=== PATIENT | male | born 1960 | race Caucasian/White ===

== ENCOUNTER → 2021-09-05 12:59 | Outpatient (CLI) | payer OTHER, SELFPAY | PROVIDERS: PCP Nurse Practitioner Family; Visit Provider Nurse Practitioner Family | DX: Z20.822 Contact with and (suspected) exposure to COVID-19 (principal) | CPT/HCPCS: C9803; U0003; U0005 ==

== ENCOUNTER 2025-10-11 10:52 | Outpatient (CLI) | payer SELFPAY ==
--- OUTSIDE RECORDS SUMMARY | 2025-08-21 12:40 | XMS_ITS | Encounter Summary ---
Author Organization [facility] Address [address] [place] [address] Care Team Providers Care Coal Picker Name Role Phone Refugio Greer MD Primary Care Provider Tran vailable Reason for Visit * Reason Comments Med Refill Encounter Details Date Type Department Care Team (Late st Contact Info) Description 08/21/2025 1:40 PM EDT Office Visit [facility] Interventional Pain Medicine [address] [facility] [place] [address] Tony Bautista MD [address] [facility] [address] [place] [address] Sacroiliac joint pain (Primary Dx); half-way prescription opiate use Social History Tobacco Use Types Packs/Day Years Used Date Smoking Tobacco: Every Day Cigarettes Smokeless Tobacco: Never Tobacco Cessation:Ready to Q uit: No; Counseling Given: Yes Comments:1/2 ppd Alcohol Use Standard Drinks/Week Comments Not Currently 0 (1 standard drink = 0.6 oz pur e alcohol) PHQ-2 Answer Date Recorded Patient Health Questionnaire-2 Score 0 04/18/2025 Sex and Gender Information Value Date Recorded Sex Assigned at Not on file Legal Sex Male 7:41 PM EDT Gender Identity Not on file Sexual Orientation Not on file documented as of this encounter Last Filed Vital Signs Vital Sign Reading Time Taken Comments Blood Pressure 135/81 08/21/2025 1:35 PM EDT Pulse 69 08/21/2025 1:35 PM EDT Temperature 36.6 C (97.9 F) 08/21/2025 1:35 PM EDT Respiratory Rate 18 08/21/2025 1:35 PM EDT Oxygen Saturation 97% 08/21/2025 1:35 PM EDT Inhaled Oxygen Concentration - - Weight 103 kg (227 lb) 08/21/2025 1:35 PM EDT Height 182.9 cm (6') 08/21/2025 1:35 PM EDT Body Mass Index 30.79 08/21/2025 1:35 PM EDT documented in this encounter Miscellaneous Notes * Progress Notes - Althea Mendoza APRN - 08/21/2025 1:40 PM EDT Images from the original note were not included. Interventional Pain Medicine Follow Up Note Subjective: Interval History: 08/21/25 Celestino presents today for routine medication follow up refill for chronic SI joint pain. Endorsing left and low back pain which is 6/10. Pain is described as dull and sharp. Exacerbated with prolonged standing, walking. Reduced with pacing activity, rest, HEP, medication. Patient denies any LE paresthesias, saddle anesthesia, bowel or bladder dysfunction, LE weakness Patient is currently requiring to take methadone 10mg QID. Patient is stable on current methadone use and has been stable on this dose for years. Patient reports pain relief and functional drive fromcurrent methadone use. Patient is able ADLS and chores from utilization of methadone. Denies untoward effects including sedation or constipation from medication and keeps in a secure location. Current GPS: 18.5 Past GPS: 13 History of Present Illness: Mr. Braajas is a 64 year-old with chronic SIJ pain and has been established in our clinic for years Onset: years Location: left low back/hip Severity: 3-7/10 Descriptors: aching Aggravating Factors: prolonged sitting and standing Relieving Factors: Methadone, repositioning Associated Symptoms: none STOP BANG: risk factors for sleep apnea including snoring, male, age, and treated for HTN Past Medications NSAIDs, neuropathic agents, other opioids, muscle relaxers Non-interventional Tx: Physical therapy Interventional Tx: Injection therapy- failed Review of Systems: CONSTITUTIONAL: denies fevers, chills HEENT: denies swallowing difficulties, sore throat CARDIOVASCULAR: denies chest pain, palpitations, syncope RESPIRATORY: denies shortness of breath, cough, wheezing GI: no bowel dysfunction : no urinary dysfunction SKIN: denies rash, skin changes MSK: Per HPI NEURO: no numbness or tingling PSYCH: no depression or anxiety General Physical Exam: Constitutional NAD; well nourished; conversant Head Normocephalic and atraumatic. Neck Neck supple Cardiovascular Well perfused Pulmonary/Chest Effort normal, no shortness of breath noted Neurological Alert and oriented to person, place, and time Skin Skin is warm and dry Psychiatric Mood/affect congruent with situation; denies suicidal ideation; no signs of impairment Neurologic & Musculoskeletal Exam Lumbar Region Exam Right (+/-) Left (+/-) Lumbar Musculature Tender w/ palpation - - Lumbar Facet Pain w/ extension - + Motor Strength Right Left L2: 5/5 5/5 L3: 5/5 5/5 L4: 5/5 5/5 L5: 5/5 5/5 S1: 5/5 5/5 Sacroiliac Joint Exam Right Left Jaren's Finger (PSIS) - + Guarded with external rotation of left hip No pain with internal rotation of right hip Imaging: Assessment & Plan: Celestino Barajas is a 65 y.o. male with persistent low back pain. We will continue a multimodal treatment approach and involve interventional therapy where indicated. Patient otherwise stable on current maintenance regimen. Anticoagulation: none #intractable sacroiliac joint pain, LEFT Chronic worsening requiring opioid medication - failed medication holiday - consider percutaneous SIJ fusion; patient is not interested in pursuing interventions - patient is currently managing pain with Methadone 10 mg QID for pain #lumbar spondylosis chronic worsening -facetogenic pain on exam -consider left lumbar MBB; patient is not interested #Tobacco Use -Recommend Cessation and counseled on today. -Tobacco use is a risk factor for increased infections if any implantable devices are considered #Chronic prescription opioid use High Risk medication needing intensive monitoring -currently compliant Refilled: -Methadone 10 mg four times daily #120, (2) 30 day prescriptions x 2 -will need updated EKG; following up PCP -; QTC 447 on 09/24/24 A. Opioid agreement: signed 06/14/2025 B. Last LCMS that was done 12/21/2024: appropriate; UDS appropriated today and sent for confirmation C. PDMP/KATHARINA reviewed and appropriate: D. As documented in the signed opioid agreement, the patient is aware of the risks associated with the administration of chronic opioids, including the risk of overdose and , the risk of developing misuse, abuse, and addiction to the prescribed medications, as well as the other risks associated with chronic opioid administration. Routine assessment for mental health conditions have been assessed during this visit, and the patient has been properly screened for substance use disorders (riskof developing and presence of these conditions). Patient reports that opioid pain medicine use increases their functional ability on a daily basis. In addition they are stored in a safe place. E. Has Narcan for emergency use F/u in 2 months for medication follow up and reevaluation Cosigned by Tony Bautista MD at 09/13/2025 6:48 AM EST Associated attestation - Tony Bautista MD - 09/13/2025 6:48 AM EST I attest to being involved in providing substantive part of the medical decision making in patient care. Results of history and physical exam findings discussed with GILMA, I directed the plan of care. Refilled meds, things are stable * Progress Notes - Ceci Calvo CNA - 08/21/2025 1:40 PM EDT Methadone 08/21/25 11:15am documented in this encounter Plan of Treatment Upcoming Encounters Date Type Department Care Team (Late st Contact Info) Description 10/18/2025 3:10 PM EST Office Visit [facility] Interventional Pain Medicine [address] [place] [id number] Tony Bautista MD [address] [facility] [address] [place] [phone] documented as of this encounter Procedures Procedure Name Priority Date/Time Associated Diagnosis Comments PAIN MANAGEMENT, QUANTITATIVE URINE DRUG TESTING Routine 08/21/2025 2:01 PM EDT 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 PAIN MANAGEMENT, QUANTITATIVE URINE DRUG TESTING Routine 08/21/2025 2:01 PM EDT 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 documented in this encounter Results * (ABNORMAL) Pain Management, Quantitative Urine Drug Testing (08/21/2025 2:01 PM EDT) [facility] [place] Alprazolam <20 <20 ng/mL 08/25 3:10 PM EDT [facility] [place] Midazolam <20 <20 ng/mL 2024 3:10 PM EDT [facility] [place] Triazolam <20 <20 ng/mL 2024 3:10 PM EDT [facility] Alprazolam <10 <10 ng/mL 08/25/2025 3:10 PM EDT [facility] Aminoclonazepam <20 <20 ng/mL 3:10 PM EDT [facility] Amphetamine <50 <50 ng/mL 08/25/2025 3:10 PM EDT [facility] Benzoylecgonine <50 <50 ng/mL 3:10 PM EDT [facility] Buprenorphine <10 <10 ng/mL 08/25/2025 3:10 PM EDT [facility] Buprenorphine Glucuronide <50 <50 ng/mL 08/25/2025 3:10 PM EDT [facility] Butalbital <50 <50 ng/mL 08/25/2025 3:10 PM EDT [facility] 9 Carboxy THC <10 <10 ng/mL 08/25/2025 3:10 PM EDT [facility] 9 Carboxy THC Glucuronide <25 <25 ng/mL 08/25/2025 3:10 PM EDT [facility] Clonazepam <10 <10 ng/mL 08/25/2025 3:10 PM EDT [facility] Codeine <50 <50 ng/mL 08/25/2025 3:10 PM EDT [facility] Codeine Glucuronide <50 <50 ng/mL 08/25 3:10 PM EDT [facility] Cyclobenzaprine <50 <50 ng/mL 3:10 PM EDT [facility] Desmethyl Tramadol <50 <50 ng/mL 2024 3:10 PM EDT [facility] Diazepam <10 <10 ng/mL 08/25/2025 3:10 PM EDT [facility] EDDP - Methadone Metabolite >1,000(H) <50 ng/mL 08/25/2025 3:10 PM EDT [facility] Fentanyl <1 <1 ng/mL 08/25/2025 3:10 PM EDT [facility] Hydrocodone <50 <50 ng/mL 08/25/2025 3:10 PM EDT [facility] Hydromorphone <50 <50 ng/mL 08/25/2025 3:10 PM EDT [facility] Hydromorphone Glucuronide <50 <50 ng/mL 08/25/2025 3:10 PM EDT [facility] Lorazepam <20 <20 ng/mL 08/25/2025 3:10 PM EDT [facility] Lorazepam Glucuronide <50 <50 ng/mL 08/25/2025 3:10 PM EDT [facility] MDA <50 <50 ng/mL 08/25/2025 3:10 PM EDT [facility] MDMA <50 <50 ng/mL 08/25/2025 3:10 PM EDT [facility] Meperidine <50 <50 ng/mL 08/25/2025 3:10 PM EDT [facility] Methadone 528(H) <50 ng/mL 08/25/2025 3:10 PM EDT [facility] Methamphetamine <50 <50 ng/mL 3:10 PM EDT [facility] Methylphenidate <50 <50 ng/mL 3:10 PM EDT [facility] 6 Monoacetyl morphine <10 <10 ng/mL 08/25/2025 3:10 PM EDT [facility] Morphine <50 <50 ng/mL 08/25/2025 3:10 PM EDT [facility] Morphine Glucuronide <50 <50 ng/mL 08/07 3:10 PM EDT [facility] Naloxone <50 <50 ng/mL 08/25/2025 3:10 PM EDT [facility] Naloxone Glucuronide <50 <50 ng/mL 08/07 3:10 PM EDT [facility] Norbuprenorphine <10 <10 ng/mL 08/25/20 3:10 PM EDT [facility] Norbuprenorphine Glucuronide <50 <50 ng/mL 08/25/2025 3:10 PM EDT [facility] Nordiazepam <20 <20 ng/mL 08/25/2025 3:10 PM EDT [facility] Norfentanyl <2 <2 ng/mL 08/25/2025 3:10 PM EDT [facility] Normeperidine <50 <50 ng/mL 08/25/2025 3:10 PM EDT [facility] PCP Quant, Ur <50 <50 ng/mL 08/25/2025 3:10 PM EDT [facility] Phenobarbital <50 <50 ng/mL 08/25/2025 3:10 PM EDT [facility] Oxazepam <20 <20 ng/mL 08/25/2025 3:10 PM EDT [facility] Oxazepam Glucuronide <50 <50 ng/mL 08/07 3:10 PM EDT [facility] Oxycodone <50 <50 ng/mL 08/25/2025 3:10 PM EDT [facility] Oxymorphone <50 <50 ng/mL 08/25/2025 3:10 PM EDT [facility] Oxymorphone Glucuronide <50 <50 ng/mL 08/25/2025 3:10 PM EDT [facility] Secobarbital <50 <50 ng/mL 08/25/2025 3:10 PM EDT [facility] Tramadol <50 <50 ng/mL 08/25/2025 3:10 PM EDT [facility] Temazepam <20 <20 ng/mL 08/25/2025 3:10 PM EDT [facility] Temazepam Glucuronide <50 <50 ng/mL 08/25/2025 3:10 PM EDT [facility] Urine Urine specimen obtained by clean catch procedure / Unknown Non-blood Collection / Unknown 08/21/2025 2:01 PM EDT 08/21/2025 6:24 PM EDT Narrative [facility] - 08/25/2025 3:10 PM EDT This report is intended for use in clinical monitoring or management of patients. It is NOT intended for use in employment-related drug testing. For pain management, the absence of expected drug(s) and/or drug metabolite(s) may indicate non-compliance, inappropriate timing of specimen collection relative to drug administration, poor drug absorption, or limitations of testing. Interpretive questions should be directed to the laboratory. Test performed by LC-MS/MS at the [facility]. This test was developed and its performance characteristics determined by [facility]. It has not been cleared or approved by the FDA. The laboratory is regulated under CLIA as qualified to perform high-complexity testing. This test is used for clinical purposes. 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
--- OUTSIDE RECORDS SUMMARY | 2025-10-11 10:55 | XMS_ITS | Encounter Summary ---
Author Organization [facility] Address [address] [place] [address] Care Team Providers Care Fagot Heater Helper Name Role Phone Garcia, Pauline Kathleen WRIGHT Primary Care Provider Refugio Greer MD Primary Care Provider Tran vailable Reason for Visit * Reason Onset Date Comments Med Refill Med Refill 06/18/2021 Encounter Details Date Type Department Care Team (Late st Contact Info) Description 06/16/2021 Refill [facility] Interventional Pain Medicine [address] [place] [address] Maykel Vivas MD [address] [facility] [address] [place] [address] Social History Tobacco Use Types Packs/Day Years Used Date Smoking Tobacco: Every Day Cigarettes Smokeless Tobacco: Never Sex and Gender Information Value Date Recorded Sex Assigned at Not on file Legal Sex Male 7:41 PM EDT Gender Identity Not on file Sexual Orientation Not on file documented as of this encounter Miscellaneous Notes * Telephone Encounter - Heaven Chavis - 06/18/2021 10:28 AM EDT Patient Phone Message Reason for Call: Pharm is calling to discuss denial of methadone script Best contact number and optimal time of day to reach caller: [phone] Note: Please do not reply to this message. Follow-up communication and further actions as a result of this message need to be communicated with the patient directly, if the patient is not active onMyChart. If the patient is active on MyChart, they will receive notification of the communication/outcome via [employer]. documented in this encounter Plan of Treatment Upcoming Encounters Date Type Department Care Team (Late st Contact Info) Description 10/18/2025 3:10 PM EST Office Visit [facility] Interventional Pain Medicine [address] [place] [address] Tony Bautista MD [address] [facility] [address] [place] [address] documented as of this encounter Visit Diagnoses Not on filedocumented in this encounter Additional Health Concerns Assessment Noted Time A fall risk assessment has been complete d for the patient 05/13/2021 3:27 PM EDT documented as of this encounter Care Teams Fagot Heater Helper Relationship Specialty Start Date End Date Pauline Garcia APRN [address] [place] [address] PCP - General 11/10/21 12/07/24 Refugio Greer MD [address] [place] [address] PCP - General Family Medicine 12/08/24 documented as of this encounter
--- OUTSIDE RECORDS SUMMARY | 2025-10-11 10:55 | XMS_ITS | Encounter Summary ---
Author Organization [facility] Address [address] [place] [address] Care Team Providers Care Mining Consultant Name Role Phone Refugio Greer MD Primary Care Provider Tran vailable Encounter Details Date Type Department Care Team (Latest Contact Info) Description 08/21/2025 Travel Social History Tobacco Use Types Packs/Day Years Used Date Smoking Tobacco: Every Day Cigarettes Smokeless Tobacco: Never Comments:1/2 ppd Alcohol Use Standard Drinks/Week Comments Not Currently 0 (1 standard drink = 0.6 oz pur e alcohol) PHQ-2 Answer Date Recorded Patient Health Questionnaire-2 Score 0 04/18/2025 Sex and Gender Information Value Date Recorded Sex Assigned at Not on file Legal Sex Male 7:41 PM EDT Gender Identity Not on file Sexual Orientation Not on file documented as of this encounter Plan of Treatment Upcoming Encounters Date Type Department Care Team (Late st Contact Info) Description 10/18/2025 3:10 PM EST Office Visit [facility] Interventional Pain Medicine [address] [place] [address] Tony Bautista MD [address] [facility] [address] [place] [address] documented as of this encounter Visit Diagnoses Not on filedocumented in this encounter Additional Health Concerns Assessment Noted Time A fall risk assessment has been complete d for the patient 08/21/2025 1:34 PM EDT A Body Mass Index follow-up plan has been documented for the patient 08/22/2025 10:41 AM EDT documented as of this encounter Care Teams Mining Consultant Relationship Specialty Start Date End Date Refugio Greer MD PCP - General Family Medicine 12/08/24 documented as of this encounter
--- OUTSIDE RECORDS SUMMARY | 2025-10-11 10:55 | XMS_ITS | Encounter Summary ---
Author Organization [facility] Address [address] [place] [address] Care Team Providers Care Inside Sales Director Name Role Phone Refugio Greer MD Primary Care Provider Tran vailable Encounter Details Date Type Department Care Team (Late st Contact Info) Description 10/02/2025 Orders Only [facility] Interventional Pain Medicine [address] [place] [address] Guzman Olmstead, DO [address] [id number] Encounter for long-term methadone use (Primary Dx) Social History Tobacco Use Types Packs/Day Years [...] Description 10/18/2025 3:10 PM EST Office Visit [facility] Interventional Pain Medicine [address] [place] [address] Tony Bautista MD [address] [facility] [address] [place] [address] Scheduled Orders Name Type Priority Associated Diagnoses Orde r Schedule ECG Adult (Performed in the Heart Station) ECG Routine Encounter for long-term methadone use Expected: 10/02/2025 (Approximate), Expires: 04/05/2027 documented as of this encounter Visit Diagnoses Diagnosis Encounter for long-term methadone use- Primary Encounter for long-term (current) use of other medications documented in this encounter Additional Health Concerns Assessment Noted Time A fall risk assessment has been complete d for the patient 08/21/2025 1:34 PM EDT A Body Mass Index follow-up plan has been documented for the patient 08/22/2025 10:41 AM EDT documented as of this encounter Care Teams Inside Sales Director Relationship Specialty Start Date End Date Refugio Greer MD PCP - General Family Medicine 12/08/24 documented as of this encounter
--- OUTSIDE RECORDS SUMMARY | 2025-10-11 10:55 | XMS_ITS | Encounter Summary ---
Author Organization [facility] Address [address] [place] [address] Care Team Providers Care Spun Paste Machine Operator Name Role Phone Refugio Greer MD Primary Care Provider Tran vailable Reason for Visit * Reason Onset Date Comments HCN Clinical Concern/Question 10/01/2025 Encounter Details Date Type Department Care Team (Late st Contact Info) Description 10/01/2025 Telephone [facility] Interventional Pain Medicine [address] [facility] [place] [address] Tony Bautista MD [address] [facility] [address] [place] [address] HCN Clinical Concern/Question Social History Tobacco Use Types Packs/Day Years [...] encounter Miscellaneous Notes * Telephone Encounter - Светлана Arias - 10/02/2025 2:52 PM EST done * Telephone Encounter - Montserrat Cardenas - 10/01/2025 1:04 PM EST Clinical Concern/Question Reason for Call: Dr Bautista/Patient called stating that he is needing an order to have an EKG. He stated that at last appointment they were going to give him one but he thought he would not need one however he does. Please send to his email [email or web address]. Thanks Best contact number: [phone] (home) Optimal time of day to reach caller: ANYTIME Additional comments/information from caller: None Note: Please do not reply to this message. Follow-up communication and further actions as a result of this message need to be communicated with the patient directly, if the patient is not active onMyChart. If the patient is active on MyChart, they will receive notification of the communication/outcome via [employer]. documented in this encounter Plan of Treatment Upcoming Encounters Date Type Department Care Team (Late st Contact Info) Description 10/18/2025 3:10 PM EST Office Visit [facility] Interventional Pain Medicine [address] [place] [address] Tony Bautista MD [address] [facility] [address] [place] [address] documented as of this encounter Visit Diagnoses Not on filedocumented in this encounter Additional Health Concerns Assessment Noted Time A fall risk assessment has been complete d for the patient 08/21/2025 1:34 PM EDT A Body Mass Index follow-up plan has been documented for the patient 08/22/2025 10:41 AM EDT documented as of this encounter Care Teams Spun Paste Machine Operator Relationship Specialty Start Date End Date Refugio Greer MD PCP - General Family Medicine 12/08/24 documented as of this encounter
--- OUTSIDE RECORDS SUMMARY | 2025-10-11 10:55 | XMS_ITS | Clinical Summary ---
Author Organization [facility] Address [address] [place] [address] Care Team Providers Care Jewel Inserter Name Role Phone Refugio Greer MD Primary Care Provider Tran vailable Allergies No known active allergies Medications naloxone (Narcan) 4 mg/0.1 mL nasal spray spray one application in one nostril in case of overdose, if no response in 2-3 minutes, repeat the dose in opposite nostril and call [phone] Active Cozaar 100 MG tablet TAKE 1 TABLET 1 TIME EACH DAY 2 Active amLODIPine (Norvasc) 2.5 MG tablet TAKE 1 TABLET 1 TIME EACH DAY 2 Active rosuvastatin (Crestor) 10 MG tablet TAKE 1 TABLET 1 TIME EACH DAY FOR CHOLESTEROL 2 Active amoxicillin-cla vulanate (Augmentin) 875-125 MG tablet TAKE 1 TABLET 2 TIMES EACH DAY FOR 10 DAYS 5 Active methadone (Dolophine) 10 MG tablet Take 1 tablet by mouth 4 times a day. 120 tablet 5 Active methadone (Dolophine) 10 MG tablet Take 1 tablet by mouth 4 times a day. 120 tablet 5 Active Active Problems Problem Noted Date Diagnosed Date Chronic, continuous use of opioids 08/15/2018 Sacroiliac joint pain 10/07/2016 Osteoarthritis of ankle 02/12/2015 Lumbar spondylosis 04/10/2014 Chronic low back pain 12/12/2013 Muscle pain, myofascial 12/12/2013 Other chronic pain 07/16/2013 Sacroiliitis, not elsewhere classified 3 Resolved Problems Problem Noted Date Diagnosed Date Resolved Date Heartburn 02/03/2017 07/28/2025 Encounters Date Type Department Care Team Description 10/02/2025 Orders Only [facility] Interventional [facility] Medicine [address] [place] [address] Guzman Olmstead, Encounter for long-term methadone use (Primary Dx) 10/01/2025 Telephone [facility] [address] [place] [address] Tony Bautista MD [facility] Clinical Concern/Question 08/21/2025 1:40 PM EDT Office Visit [facility] [address] [place] [address] Tony Bautista MD Sacroiliac joint pain (Primary Dx); senior living prescription opiate use 08/21/2025 Travel from Last 3 Months Family History Medical History Relation Name Comments Cancer Father Stroke Mother Relation Name Status Comments Father Mother Social History Tobacco Use Types Packs/Day Years [...] on file Sexual Orientation Not on file Last Filed Vital Signs Vital Sign Reading [...] Mass Index 30.79 08/21/2025 1:35 PM EDT Plan of Treatment Upcoming Encounters Date Type Department Care Team (Late st Contact Info) Description 10/18/2025 3:10 PM EST Office Visit [facility] Medicine [address] [facility] [place] [address] Tony Bautista MD [address] [facility] [address] [place] [address] Health Maintenance Due Date Last Done Comments [facility]-HIV Screening 1962 [facility]-Hepatitis C Screening 1962 [facility]-/Child/Adol SDOH Screenings 1962 [facility]- SDOH Screenings 01/29/1980 [facility]-Adult SDOH Screenings 01/29/1980 [facility]-DTaP,Tdap,and Td Vaccines (1 - Tdap) 1981 [facility]-Pneumococcal Vaccine: 50+ Years (1 of 2 - PCV) 1981 CT Colonography 2007 Colonoscopy 2007 FIT-DNA 2007 FIT 2007 FOBT 2007 Sigmoidoscopy 2007 [facility]-Colorectal Cancer Screening 2007 [facility]-Zoster Vaccines (1 of 2) 01/29/2012 [id number] Vaccine (1 - 2024- season) 2025 [facility]-Influenza Vaccine (#1) 2025 [facility]-Depression Screening 04/18/2026 04/18/2025 [facility]-RSV Vaccine: 60+ Years or (1 - 1-dose 75+ series) 2037 [facility]-Obesity Intervention Completed 025, 06/14/2025, 04/18/2025, Additional history exists HPV Vaccines Aged Out No longer eligi ble based on patient's age to complete this topic [facility]-HIB Vaccines Aged Out No longer e ligible based on patient's age to complete this topic [facility]-Hepatitis A Vaccines Aged Out No longer eligible based on patient's age to complete this topic [facility]-IPV Vaccines Aged Out No longer e ligible based on patient's age to complete this topic [facility]-Rotavirus Vaccines Aged Out No lo nger eligible based on patient's age to complete this topic Procedures Procedure Name Priority Date/Time Associated Diagnosis Comments PAIN MANAGEMENT, QUANTITATIVE URINE DRUG TESTING Routine 08/21/2025 2:01 PM EDT senior living prescription opiate use PAIN MANAGEMENT, QUANTITATIVE URINE DRUG TESTING Routine 08/21/2025 2:01 PM EDT senior living prescription opiate use from Last 3 Months Results * (ABNORMAL) Pain Management, Quantitative Urine Drug Testing (08/21/2025 2:01 PM EDT) [facility] Alprazolam <20 <20 ng/mL 08/25 3:10 PM EDT [facility] [place] Midazolam <20 <20 ng/mL 2024 3:10 PM EDT [facility] [place] Triazolam <20 <20 ng/mL 2024 3:10 PM EDT [facility] Alprazolam <10 <10 ng/mL 08/25/2025 3:10 PM EDT [facility] Aminoclonazepam <20 <20 ng/mL 3:10 PM EDT [facility] Amphetamine <50 <50 ng/mL 08/25/2025 3:10 PM EDT [facility] Benzoylecgonine <50 <50 ng/mL 3:10 PM EDT [facility] Buprenorphine <10 <10 ng/mL 08/25/2025 3:10 PM EDT [facility] Buprenorphine Glucuronide <50 <50 ng/mL 08/25/2025 3:10 PM EDT [facility] Butalbital <50 <50 ng/mL 08/25/2025 3:10 PM EDT [facility] 9 Carboxy THC <10 <10 ng/mL 08/25/2025 3:10 PM EDT [facility] 9 Carboxy THC Glucuronide <25 <25 ng/mL 08/25/2025 3:10 PM EDT [facility] Clonazepam <10 <10 ng/mL 08/25/2025 3:10 PM EDT [facility] Codeine <50 <50 ng/mL 08/25/2025 3:10 PM EDT [facility] Codeine Glucuronide <50 <50 ng/mL 08/25 3:10 PM EDT [facility] Cyclobenzaprine <50 <50 ng/mL 3:10 PM EDT [facility] Desmethyl Tramadol <50 <50 ng/mL 2024 3:10 PM EDT [facility] Diazepam <10 <10 ng/mL 08/25/2025 3:10 PM EDT [facility] EDDP - Methadone Metabolite >1,000(H) <50 ng/mL 08/25/2025 3:10 PM EDT [facility] Fentanyl <1 <1 ng/mL 08/25/2025 3:10 PM EDT [facility] Hydrocodone <50 <50 ng/mL 08/25/2025 3:10 PM EDT [facility] Hydromorphone <50 <50 ng/mL 08/25/2025 3:10 PM EDT [facility] Hydromorphone Glucuronide <50 <50 ng/mL 08/25/2025 3:10 PM EDT [facility] Lorazepam <20 <20 ng/mL 08/25/2025 3:10 PM EDT [facility] Lorazepam Glucuronide <50 <50 ng/mL 08/25/2025 3:10 PM EDT [facility] MDA <50 <50 ng/mL 08/25/2025 3:10 PM EDT [facility] MDMA <50 <50 ng/mL 08/25/2025 3:10 PM EDT [facility] Meperidine <50 <50 ng/mL 08/25/2025 3:10 PM EDT [facility] Methadone 528(H) <50 ng/mL 08/25/2025 3:10 PM EDT [facility] Methamphetamine <50 <50 ng/mL 3:10 PM EDT [facility] Methylphenidate <50 <50 ng/mL 3:10 PM EDT [facility] 6 Monoacetyl morphine <10 <10 ng/mL 08/25/2025 3:10 PM EDT [facility] Morphine <50 <50 ng/mL 08/25/2025 3:10 PM EDT [facility] Morphine Glucuronide <50 <50 ng/mL 08/07 3:10 PM EDT [facility] Naloxone <50 <50 ng/mL 08/25/2025 3:10 PM EDT [facility] Naloxone Glucuronide <50 <50 ng/mL 08/07 3:10 PM EDT [facility] Norbuprenorphine <10 <10 ng/mL 08/25/20 3:10 PM EDT [facility] Norbuprenorphine Glucuronide <50 <50 ng/mL 08/25/2025 3:10 PM EDT [facility] Nordiazepam <20 <20 ng/mL 08/25/2025 3:10 PM EDT [facility] Norfentanyl <2 <2 ng/mL 08/25/2025 3:10 PM EDT [facility] Normeperidine <50 <50 ng/mL 08/25/2025 3:10 PM EDT [facility] PCP Quant, Ur <50 <50 ng/mL 08/25/2025 3:10 PM EDT [facility] Phenobarbital <50 <50 ng/mL 08/25/2025 3:10 PM EDT [facility] Oxazepam <20 <20 ng/mL 08/25/2025 3:10 PM EDT [facility] Oxazepam Glucuronide <50 <50 ng/mL 08/07 3:10 PM EDT [facility] Oxycodone <50 <50 ng/mL 08/25/2025 3:10 PM EDT [facility] Oxymorphone <50 <50 ng/mL 08/25/2025 3:10 PM EDT [facility] Oxymorphone Glucuronide <50 <50 ng/mL 08/25/2025 3:10 PM EDT [facility] Secobarbital <50 <50 ng/mL 08/25/2025 3:10 PM EDT [facility] Tramadol <50 <50 ng/mL 08/25/2025 3:10 PM EDT [facility] Temazepam <20 <20 ng/mL 08/25/2025 3:10 PM EDT [facility] Temazepam Glucuronide <50 <50 ng/mL 08/25/2025 3:10 PM EDT [facility] Urine Urine specimen obtained by clean catch procedure / Unknown Non-blood Collection / Unknown 08/21/2025 2:01 PM EDT 08/21/2025 6:24 PM EDT Narrative [facility] - 08/25/2025 3:10 PM EDT [...] laboratory. Test performed by LC-MS/MS at the [facility]. This test was developed and its performance characteristics determined by [facility]. It has not been cleared or approved by the FDA. The laboratory is regulated under CLIA as qualified to perform high-complexity testing. This test is used for clinical purposes. us Tony Bautista MD LAB URINE ORDERABLES Final R esult [facility] [address] [place] [address] from Last 3 Months Care Teams Jewel Inserter Relationship Specialty Start Date End Date Refugio Greer MD PCP - General Family Medicine 12/08/24
--- NOTE | 2025-10-11 11:33 | ECG_ITS ---
APPROVED REPORT Exam: Resting ECG HR:49 bpm ECG Measurements Heart Rate 49 AXES ME 172 P 15 QRSd 104 QRS -46 QT 466 T 91 QTc 435 Conclusion SINUS BRADYCARDIA LEFT ANTERIOR FASCICULAR BLOCK [QRS AXIS <= -45, QR IN I, RS IN II] Late R wave change and NSSTTW changes in anterior leads UNCONFIRMED REPORT Electronically signed by : Josh Jacobs MD 10/12/2025 08:41:32
== END 2025-10-11 23:59 | disposition home or self-care (01) ==
LOC: RT 10:54
PROVIDERS: PCP Family Medicine; Visit Provider Anesthesiology Pain Medicine
DX: I44.4 Left anterior fascicular block (principal); R00.1 Bradycardia, unspecified; R94.31 Abnormal electrocardiogram [ECG] [EKG]; Z79.891 Long term (current) use of opiate analgesic
CPT/HCPCS: 93005